=== PATIENT | female | born 1975 | race Caucasian/White ===

== ENCOUNTER 2017-02-26 15:05 | Emergency (ER) | payer BC ==
[~2017-02-26] VITALS: Ht 149.9 cm; Wt 89.8 kg
[~2017-02-26 15:05] MED LIST: ACIPHEX20 MG PO; DILANTIN PO; ESTRACE1 MG PO; FLONASE16 GM; LEVEMIR SUBQ; LORTAB 5/500 TA1 TA2 PO; MICARDIS40 MG PO; NOVOLIN R100 UNITS/; PRAVACHOL PO; REGLAN10 MG PO
[2017-02-26 16:21] LABS: BASOPHIL# 0.1 X10e3 (0-0.3); BASOPHIL% 0.7 % (0-2.5); EOSINOPHIL# 0.1 X10e3 (0-0.7); EOSINOPHIL% 0.5 % (0.0-7.0); HEMATOCRIT 42.2 % (35.0-45.0); HEMOGLOBIN 13.9 gm/dL (12.0-16.0); MEAN CELL VOLUME 88.2 FL (83-96); MEAN CORPUSCULAR HEMOGLOBIN 29.1 PG (28-34); MEAN PLATELET VOLUME 7.5 FL (6.5-11.5); MONOCYTE# 0.6 X10e3 (0-1.0); MONOCYTE% 5.3 % (3.0-12.0); NEUTROPHIL# 7.5 X10e3 (1.5-7.1); NEUTROPHIL% 66.5 % (40-75); PLATELET COUNT 234 X10e3 (140-420); RED BLOOD COUNT 4.79 X10e (3.90-5.30); RED CELL DISTRIBUTION WIDTH 15.2 % (11.0-15.5); WHITE BLOOD COUNT 11.3 X10e3 (4.0-10.5)
[2017-02-26 16:26] LABS: DIFF IND NO
[2017-02-26 16:50] LABS: ALBUMIN SERUM 4.3 g/dL (3.5-5.0); BILIRUBIN, DIRECT 0.1 mg/dL (0.0-0.2); BILIRUBIN,INDIRECT 0.7 mg/dL (0.0-0.9); BILIRUBIN,TOTAL 0.8 mg/dL (0.2-2.0); BUN/CREATININE RATIO 13.33; CALCIUM SERUM 8.8 mg/dL (8.4-10.2); CREATININE SERUM 0.6 mg/dL (0.6-1.4); GLOM FILT RATE Estimated 111.6 mL/min (>60); POTASSIUM 3.9 mmol/L (3.5-5.1); PROTEIN TOTAL SERUM 7.9 g/dL (6.0-8.3)
== END 2017-02-26 16:20 | disposition left against medical advice (07) ==
LOC: CED 15:05
DX: Z53.21 Procedure and treatment not carried out due to patient leaving prior to being seen by health care provider (principal)
CPT/HCPCS: 80048; 80076; 83690; 85025

== ENCOUNTER → 2017-02-27 | Outpatient (CLI) | payer BC ==
--- NOTE | ~2017-02-27 | MR145 ---
[facility] A Service of [facility] RADIOLOGY TEXT RESULTS PATIENT: BRIANNA LUTZ LOCATION: [facility] : 71 UNIT #: [id number] AGE: [address]: Wolfgang Forde MD SEX: F ORDER DR: [id number] [facility] [address] [place], [place] [address] [id number] O MR#: [id number] Acc #: [id number] NAME: BRIANNA LUTZ : 1975 SEX: F STUDY DATE/TIME: 02/27/2017 10:10 UNIT: [facility] ROOM: STUDY DESCRIPTION: MR MRCP WWo Contrast Attending Physician: Wolfgang Forde M.D. Referring Physician: Wolfgang Forde M.D. Ordering Physician: Wolfgang Forde M.D. Primary Care Physician: Britntey Ortiz [facility] REPORT This report is preliminary unless electronic signature is present. EXAM MRI abdomen with and without contrast MRCP protocol. INDICATION Right-sided flank pain since October 2016 with nausea and vomiting. PROCEDURE Multiplanar, multisequence MR imaging of the abdomen prior to and following 18 mL of MultiHance. COMPARISON CT from [facility] on 01/09/2017. FINDINGS ABDOMEN WITHOUT CONTRAST: Liver is enlarged measuring 23.9 cm in length. There is hepatic steatosis. The spleen, kidneys, adrenal glands, pancreas and bowel loops have normal signal. Previous cholecystectomy. There is no bile duct dilation. Pancreatic duct is nondilated. ABDOMEN WITH CONTRAST: Postcontrast sequences are mildly motion degraded. No abnormal enhancement is seen in the abdomen. IMPRESSION 1. No acute findings. 2. Hepatomegaly with diffuse hepatic steatosis. 3. Previous cholecystectomy. 4. No bile duct or pancreatic duct dilation. Dictated by... [facility] A Service [facility] RADIOLOGY TEXT RESULTS PATIENT: BRIANNA LUTZ [facility] UNIT #: [id number] AGE: [address]: Wolfgang Forde MD SEX: F ORDER DR: Lawrence Aguilar M.D. THIS IS AN ELECTRONICALLY VERIFIED REPORT Lawrence Aguilar M.D. at 03/04/2017 8:19 AM DOLORES/elida TD: 02/28/2017 11:04 JOB #: [id number] [facility] REPORT Page 1 of 1 COPY
== END | disposition home or self-care (01) ==
LOC: CMRI 09:34
DX: R10.9 Unspecified abdominal pain (principal); K76.0 Fatty (change of) liver, not elsewhere classified; Z90.49 Acquired absence of other specified parts of digestive tract
CPT/HCPCS: 74183; A9577